=== PATIENT | male | born 1965 ===

== ENCOUNTER 2016-09-13 13:17 | Observation (INO) | payer MEDICAID, OTHER ==
[2016-09-13 13:17] VITALS: BMI 20.9
--- NOTE | 2016-09-13 14:21 | ED PDOC ---
HPI:STROKE - Time Time: 14:17 - Historian Historian: Patient - Chief Complaint Chief Complaint: Slurred speech - Onset Date: 09/13/16 Time: 13:30 Onset: Hours (1) - Timing Timing: Resolved - Location Location: Speech - Radiation Radiation: None - Severity of pain Maximum severity:: Mild Pain Scale:: 0 Severity Current: None Pain Scale:: 0 - Associated Symptoms Associated symptoms:: Chest pain - TPA Positive for Contraindication: Yes Reason tPA is not being Administered: Sxs resolved - Notes: Notes:: Unable to speak at 1:30 PM today while standing on line at [employer] office. Assoc with chest pressure and heaviness left arm. Sxs hav eresolved since arrival to ED. NIHSS Stroke Scale - How Severe is the Stroke Level of Consciousness: 0=Alert LOC to Questions: 0=Both comments correct LOC to commands: 0=Obeys both correctly Best Gaze: 0=Normal Visual: 0=No visual loss Facial: 0=Normal Motor Arm - Left: 0=No drift Motor Arm - Right: 0=No drift Motor Leg - Left: 0=No drift Motor Leg - Right: 0=No drift Limb Ataxia: 0=Absent Sensory: 0=Normal Best Language: 0=No aphasia Dysarthia: 0=Normal articulation Extinction & Inattention (Neglect): 0=Normal, no object Score: 0 rTPA Inclusion/Exclusion - Refusal of Treatment Patient Refused Treatment: No - Inclusion Criteria for Altepase Patient is 18 years or Older: Yes The Clinical Diagnosis of Ischemic Stroke That is Causing a Potentially Disabling Neurological Deficit: Yes Time of Onset is Well Established to be Less Than 270 Minute Before Treatment Would Begin: Yes Risk/Benefit Discussed With Patient/Family Member Present: No Past Medical History Vital Signs: Last Vital Signs Temp Pulse 79 09/13/16 13:19 Resp 16 09/13/16 13:19 BP 158/86 H 09/13/16 13:19 Pulse Ox 99 09/13/16 13:19 - Medical History PMH: Anxiety, CAD, Depression, HTN Denies: Diabetes, Hepatitis, HIV, Chronic Kidney Disease, Seizures, Sexually Transmitted Disease - Surgical History Surgical History: Coronary Stent (few months ago) - Family History Family History: States: Unknown Family Hx - Home Medications Home Medications: Ambulatory Orders Medication Instructions Recorded Aspirin [Lo-Dose Aspirin EC] 81 mg OD DAILY 09/13/16 Clopidogrel [Plavix] 75 mg PO DAILY 09/13/16 - Allergies Allergies/Adverse Reactions: Allergies Allergy/AdvReac Type Severity Reaction Status Date / Time No Known Allergies Allergy Verified 09/13/16 13:19 Review of Systems ROS Statement: Except As Marked, All Systems Reviewed And Found Negative Cardiovascular: Positive for: Chest Pain Neurological: Positive for: Change in Speech Physical Exam - Reviewed Nursing Documentation Reviewed: Yes Vital Signs Reviewed: Yes - Physical Exam Appears: Positive for: Non-toxic, No Acute Distress Head Exam: Positive for: ATRAUMATIC, NORMAL INSPECTION, NORMOCEPHALIC Skin: Positive for: Normal Color, Warm, DRY Eye Exam: Positive for: EOMI, Normal appearance, PERRL ENT: Positive for: Normal ENT Inspection Neck: Positive for: Normal, Painless ROM Cardiovascular/Chest: Positive for: Regular Rate, Rhythm Respiratory: Positive for: CNT, Normal Breath Sounds Gastrointestinal/Abdominal: Positive for: Normal Exam, Bowel Sounds, Soft Back: Positive for: Normal Inspection Extremity: Positive for: Normal ROM Neurologic/Psych: Positive for: Alert, Oriented. Negative for: Motor/Sensory Deficits - ECG O2 Sat by Pulse Oximetry: 99 Disposition - Clinical Impression Clinical Impression: TIA (transient ischemic attack) - Patient ED Disposition Is Patient to be Admitted: Yes - Disposition Disposition Time: 14:23 Condition: FAIR - Pt Status Changed To: Hospital Disposition Of: Observation - POA Present On Arrival: None
[2016-09-13 14:33] LABS: BASO # 0.1 K/uL (0.0-0.2); BASO % 0.7 % (0.0-2.0); EOS # 0.2 K/uL (0.0-0.7); EOS % 1.7 % (0.0-4.0); HEMATOCRIT 40.7 % (35.0-51.0); LYMPH # 2.9 K/uL (1.0-4.3); LYMPH % 23.1 % (20.0-40.0); MEAN CELL VOLUME 88.6 fl (80.0-94.0); MEAN CORPUSCULAR HGB CONC 33.8 g/dL (33.0-37.0); MEAN PLATELET VOLUME 8.6 fl (7.2-11.7); MONO # 1.2 K/uL (0.0-0.8); MONO % 9.4 % (0.0-10.0); NEUT # 8.3 K/uL (1.8-7.0); NEUT % 65.1 % (50.0-75.0); NRBC % 0.2 % (0.0-0.0); RED CELL DISTRIBUTION WIDTH 15.1 % (11.5-14.5); WHITE BLOOD COUNT 12.8 K/uL (4.8-10.8)
--- NOTE | 2016-09-13 14:35 | CT ---
PROCEDURE: CT HEAD WITHOUT CONTRAST. HISTORY: code stroke COMPARISON: 10/21/2015 TECHNIQUE: Axial computed tomography images were obtained through the head/brain without intravenous contrast. Radiation dose: Total exam DLP = 1010.88 mGy-cm. This CT exam was performed using one or more of the following dose reduction techniques: Automated exposure control, adjustment of the mA and/or kV according to patient size, and/or use of iterative reconstruction technique. FINDINGS: HEMORRHAGE: No intracranial hemorrhage. BRAIN: No mass effect or edema. No atrophy or chronic microvascular ischemic changes. No evidence of acute infarct. VENTRICLES: Unremarkable. No hydrocephalus. CALVARIUM: Unremarkable. PARANASAL SINUSES: Unremarkable as visualized. No significant inflammatory changes. MASTOID AIR CELLS: Unremarkable as visualized. No inflammatory changes. OTHER FINDINGS: None. IMPRESSION: No intracranial hemorrhage. No evidence of acute infarct. Unremarkable examination. These results were discussed with Dr. Cool, by telephone, at 2:30 p.m. on 09/13/2016.
[2016-09-13 15:02] LABS: ALB/GLOB RATIO 1.4 (1.0-2.1); ALKALINE PHOSPHATASE 47 U/L (38-126); ALT/SGPT 36 U/L (21-72); AST/SGOT 26 U/L (17-59); BILIRUBIN,TOTAL 0.8 mg/dl (0.2-1.3); BLOOD UREA NITROGEN 12 mg/dl (9-20); CALCIUM 9.2 mg/dL (8.4-10.2); CARBON DIOXIDE 24 mmol/L (22-30); CHLORIDE 110 mmol/L (98-107); CHOLESTEROL 174 mg/dL (0-199); GFR AFRICAN-AMERICAN > 60; GLUCOSE,RANDOM 83 mg/dL (75-110); POTASSIUM 4.1 MMOL/L (3.6-5.0); SODIUM 144 mmol/l (132-148); TOTAL PROTEIN 7.8 G/DL (6.3-8.2)
--- NOTE | 2016-09-13 15:18 | CON ---
DATE: 09/13/2016 CHIEF COMPLAINT: Slurred speech. HISTORY OF PRESENTING ILLNESS: This is a 51-year-old man who is a smoker, history of dyslipidemia, c oronary artery disease, anxiety, depression, hypertension, is on aspirin and Plavix at home. He came in the hospital because while he was at the [employer] office and was standing in line, he noti job that he had difficulty getting out his words and his noticed that his speech was slightly sl urred. No focal weakness or paresthesias in the extremities. No headaches. No change in sense of v ision, taste or smell. His transient dysarthria resolved. Currently, there is no pronator drift. Joseline loomis is doing well. At this time, no focal deficits on neuro exam and therefore since his symptoms reso lved, he was not a tPA candidate. PAST MEDICAL HISTORY: History of coronary artery disease, depression, hypertension, anxiety. REVIEW OF SYSTEMS: A 14-point is negative except for the HPI. MEDICATIONS: Reviewed via nurse's reconciliation sheet. ALLERGIES: No known drug allergies. SOCIAL HISTORY: He is a smoker. Occasional ETOH use. No illicit drug use. FAMILY HISTORY: Noncontributory. PHYSICAL EXAMINATION: VITAL SIGNS: Temperature of 97.3, pulse rate 61, blood pressure 158/86, respiratory rate 16, oxygen saturation 99% via room air. GENERAL: The patient is sitting up in bed, no acute distress. HEENT: Atraumatic, normocephalic. PERRLA. Extraocular muscles intact. NECK: Supple, no JVD, no adenopathy noted. LUNGS: Clear to auscultation. No adventitious sounds. HEART: S1, S2, normal rate and rhythm. No murmurs, rubs, or gallops. ABDOMEN: Soft, nontender, nondistended. Bowel sounds are present. EXTREMITIES: No clubbing, no cyanosis. Peripheral pulses 2+ felt bilaterally. NEUROLOGIC: The patient is alert, oriented to person, place, month and year. Speech is fluent, with out any errors. Cranial nerves II-XII are intact. MOTOR: Moves all extremities equally. No pronator drift seen. SENSORY: Light touch, pinprick, proprioception, vibration intact. DEEP TENDON REFLEXES: 2+ throughout. COORDINATION: Gbkfzi-tj-xray intact. GAIT: Deferred for now. LABORATORIES: Unremarkable. ASSESSMENT AND PLAN: This is a 51-year-old man with past medical history of coronary artery disease, hypertension, depression, anxiety, who had transient slurred speech without any focal weakness. His neuro exam is currently nonfocal. At this time, his symptoms likely presented a likely transient is chemic event. At this time, recommend: 1. An MRI of the brain to assess for any acute intracranial abnormalities. 2. Continue with aspirin 81 and Plavix 75 mg for stroke prevention. 3. Low fat, low cholesterol diet and clinically stable from my standpoint. Thank you for this consult. Guillermo Jain MD cc: [id number] TT: 09/13/2016 15:18:09 Confirmation # [id number] Dictation # [id number]
--- NOTE | 2016-09-13 15:40 | RAD ---
HISTORY: cva COMPARISON: Chest x-ray performed 10/21/15 TECHNIQUE: Chest, one view. FINDINGS: Vascular stent. LUNGS: No focal consolidation. Probable tiny right upper lobe calcified granulomas. Please note that chest x-ray has limited sensitivity for the detection of pulmonary masses. PLEURA: No significant pleural effusion identified. No definite pneumothorax . CARDIOVASCULAR: Heart size appears within normal limits. OSSEOUS STRUCTURES: No acute osseous abnormality identified. VISUALIZED UPPER ABDOMEN: Unremarkable. OTHER FINDINGS: None. IMPRESSION: No focal consolidation, significant pleural effusion, or definite pneumothorax identified.
--- NOTE | 2016-09-13 19:23 | CON ---
DATE: 09/13/2016 REASON FOR CONSULTATION: Dizziness and chest discomfort. HISTORY OF PRESENT ILLNESS: The patient is a 51-year-old male, who is a smoker, has a histo ry of coronary artery disease, underwent right coronary artery stenting in May of this year at [facility]. The patient was standing in line at [employer] office where he started to exper ience weakness and slurring of speech as well as tendency to fall asleep. The patient denies any los s of consciousness. He did report chest tightness. There is no reported diaphoresis. At this time, the patient feels comfortable. MEDICATIONS: Aspirin 81 mg once a day, Plavix 75 mg once a day, pneumococcal vaccine was given. The patient's home medications include aspirin and Plavix. REVIEW OF SYSTEMS: No nausea or vomiting. No fever or chills. No diaphoresis, no palpitation. PHYSICAL EXAMINATION: GENERAL: The patient is a middle-aged male who does not appear to be in any distress. VITAL SIGNS: Blood pressure 93/65, heart rate 65, temperature 97.5, respirations 20. HEENT: Normocephalic. NECK: No JVD. CHEST: Clear. HEART: S1, S2 regular. ABDOMEN: Soft. EXTREMITIES: No edema, no calf tenderness. LABORATORY AND DIAGNOSTIC DATA: EKG revealed sinus rhythm at rate of 74. Moderate voltage criteria for LVH. Laboratories: Hemoglobin and hematocrit 13.8 and 40.7, white count and platelet count 12.8 and 255,000. SMA-7 today is within normal limits except for chloride of 110. One set of troponin is negative. PT, PTT are within normal limits. Head CT scan without contrast unremarkable examination . ASSESSMENT: 1. Transient ischemic attack. 2. Chest pain, rule out myocardial infarction. 3. Leukocytosis. RECOMMENDATIONS: Continue aspirin 81 mg once a day, Plavix 75 mg once a day and will follow brain MR I that was performed today. Obtain daily EKGs and follow serial cardiac enzymes. Schedule the patie nt for an echocardiogram. Consider psychiatry evaluation in the meantime, as the patient has history of depression and apparently was not taking any medications. Wilner Hodges MD cc: [id number] TT: 09/13/2016 19:22:06 Confirmation # [id number] Dictation # [id number] ln
--- NOTE | 2016-09-13 19:25 | CARD ---
APPROVED REPORT EKG Measurement Heart [id number] MN [id number] [id number] <Conclusion> Normal sinus rhythm Moderate voltage criteria for LVH, may be normal variant Borderline ECG
[2016-09-13] MEDS ORDERED: Pneumococcal 23-Valent Vaccine IM ONE (21:00)
[2016-09-14 07:19] LABS: HEMATOCRIT 40.4 % (35.0-51.0); MEAN CELL VOLUME 90.6 fl (80.0-94.0); MEAN CORPUSCULAR HEMOGLOBIN 30.3 pg (27.0-31.0); MEAN CORPUSCULAR HGB CONC 33.4 g/dL (33.0-37.0); RED CELL DISTRIBUTION WIDTH 14.7 % (11.5-14.5)
[2016-09-14 07:23] LABS: ALB/GLOB RATIO 1.4 (1.0-2.1); ALKALINE PHOSPHATASE 49 U/L (38-126); ALT/SGPT 34 U/L (21-72); AST/SGOT 28 U/L (17-59); BILIRUBIN,TOTAL 0.8 mg/dl (0.2-1.3); BLOOD UREA NITROGEN 15 mg/dl (9-20); CALCIUM 9.3 mg/dL (8.4-10.2); CARBON DIOXIDE 25 mmol/L (22-30); CHLORIDE 109 mmol/L (98-107); CHOLESTEROL 179 mg/dL (0-199); GFR AFRICAN-AMERICAN > 60; GLUCOSE,RANDOM 88 mg/dL (75-110); POTASSIUM 3.5 MMOL/L (3.6-5.0); SODIUM 144 mmol/l (132-148); TOTAL PROTEIN 7.1 G/DL (6.3-8.2)
[2016-09-14 07:39] LABS: T4 8.37 ug/dl (5.5-11.0)
[2016-09-14 07:52] LABS: THYROID STIMULATING HORMONE 1.47 mIU/ML (0.46-4.68)
[2016-09-14 09:04] LABS: RBC URINE 3 /hpf (0-3); URINE BILIRUBIN NEGATIVE (NEGATIVE); URINE BLOOD NEGATIVE (NEGATIVE); URINE COLOR YELLOW (YELLOW); URINE GLUCOSE (UA) NEG (Normal); URINE KETONE NEGATIVE (NEGATIVE); URINE LEUKOCYTE ESTERASE NEG Leu/uL (Negative); URINE PROTEIN NEGATIVE (NEGATIVE); URINE UROBILINOGEN 0.2-1.0 mg/dL (0.2-1.0); WBC URINE 3 /hpf (0-5)
[2016-09-14 12:13] VITALS: O2SAT 99
--- NOTE | 2016-09-14 12:13 | MRI ---
PROCEDURE: MRI BRAIN WITHOUT CONTRAST HISTORY: TIA COMPARISON: Comparison made with CT scan brain 09/13/2016 TECHNIQUE: Multiplanar, multisequence MR images of the brain were obtained without intravenous contrast enhancement. FINDINGS: HEMORRHAGE: No acute parenchymal, subarachnoid or extra-axial hemorrhage. No hemosiderin deposition identified on gradient echo weighted sequence. DWI: No evidence of an acute or early subacute infarction seen on diffusion imaging. BRAIN PARENCHYMA: There are several small focal areas of increased T2 signal seen scattered about the subcortical white matter both cerebral hemispheres - nonspecific. Changes may represent minor chronic sequela of small vessel disease. Differential diagnosis would include sequela of migraine headaches, old trauma, post infectious/inflammatory etiologies. Atypical presentation of a demyelinating disease process would be less likely in the absence of a pertinent clinical history however not completely excluded. Mild generalized volume loss. VENTRICLES: No evidence of obstructive hydrocephalus CRANIUM: There are no acute calvarial abnormalities. ORBITS: Grossly unremarkable. PARANASAL SINUSES/MASTOIDS: Minor mucosal thickening noted within a few ethmoid air cells. VASCULAR SYSTEM: Visualized major vascular flow voids at skull base are patent. OTHER FINDINGS: None. IMPRESSION: No acute intracranial hemorrhage or infarct. There are several small nonspecific focal areas of increased T2 signal seen scattered about subcortical white matter both cerebral hemispheres nonspecific. Changes may represent chronic sequela of small vessel disease however see above discussion for differential diagnostic considerations. Mild generalized volume loss.
--- NOTE | 2016-09-14 14:46 | CP.PCM.HP ---
History of Present Illness - History of Present Illness History of Present Illness: CC: Weakness/ slurred speech. 51 y/o M, brought to ER [facility] for evaluation of weakness associated to slurred speech while at [employer] in [place]. As per PT, while in ER, after 30 minutes episodes were subsided. Worsening symptoms: Pt c/o of chest pain left sided, non radiated, mild intensity 3:10, intermittent, tightness type Aggravated factor: Unable to speak in the [employer] office while on line on [employer]. Pt denied: Fever, chills, n/v/d, abdominal pain, urinary symptoms, dizziness, syncope, headache, numbness, SOB, sick contact, recent travel. 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 EKG showed: Normal sinus rhythm. CT Head: No intracranial hemorrhage / infarct. MRI Brain: No acute intracranial hemorrhage or infarct. CXR: No consolidation, pleural effusion or pneumothorax. Carotid U-S: Severe Stenosis b/l. Present on Admission - Present on Admission Any Indicators Present on Admission: No Review of Systems - Constitutional Constitutional: Other (negative) - EENT Eyes: Requires Corrective Lenses Ears: Other (negative) Nose/Mouth/Throat: Other (negative) - Cardiovascular Cardiovascular: Chest Pain (L sided) - Respiratory Respiratory: Other (negative) - Gastrointestinal Gastrointestinal: Other (negative) - Genitourinary Genitourinary: Other (negative) - Musculoskeletal Musculoskeletal: Other (negative) - Integumentary Integumentary: Other (negative) - Neurological Neurological: Abnormal Speech - Psychiatric Psychiatric: Other (negative) - Endocrine Endocrine: Other (negative) - Hematologic/Lymphatic Hematologic: Other (egative) Past Patient History - Infectious Disease Hx of Infectious Diseases: None - Tetanus Immunizations Tetanus Immunization: Unknown - Past Medical History & Family History Past Medical History?: Yes Pertinent Family History: Unknown - Past Social History Smoking Status: Heavy Smoker > 10 Cigarettes Daily Alcohol: None Drugs: Denies Home Situation {Lives}: With Family - CARDIAC Hx Cardiac Disorders: Yes Hx Hypertension: Yes - PULMONARY Hx Respiratory Disorders: No - NEUROLOGICAL Hx Neurological Disorder: No - HEENT Hx HEENT Problems: No - RENAL Hx Chronic Kidney Disease: No Hx Kidney Stones: Yes (DX LAST WEEK AT [facility]) - ENDOCRINE/METABOLIC Hx Endocrine Disorders: No - HEMATOLOGICAL/ONCOLOGICAL Hx Blood Disorders: No Hx Cancer: Yes (Testicular in 1998, had Orchiectomy.) - INTEGUMENTARY Hx Dermatological Problems: No - MUSCULOSKELETAL/RHEUMATOLOGICAL Hx Musculoskeletal Disorders: No Hx Falls: No - GASTROINTESTINAL Hx Gastrointestinal Disorders: No - GENITOURINARY/GYNECOLOGICAL Hx Genitourinary Disorders: Yes Hx Prostate Cancer: Yes - PSYCHIATRIC Hx Psychophysiologic Disorder: Yes Hx Anxiety: Yes Hx Depression: Yes Hx Substance Use: No - SURGICAL HISTORY Hx Surgeries: Yes Hx Cardiac Catheterization: Yes Hx Coronary Stent: Yes (few months ago) Other/Comment: Orchiectomy in 1998. - ANESTHESIA Hx Anesthesia: Yes Hx Anesthesia Reactions: No Meds Allergies/Adverse Reactions: Allergies Allergy/AdvReac Type Severity Reaction Status Date / Time No Known Allergies Allergy Verified 09/13/16 13:19 Physical Exam - Constitutional Appears: No Acute Distress - Head Exam Head Exam: NORMAL INSPECTION - Eye Exam Eye Exam: PERRL - ENT Exam ENT Exam: Normal Oropharynx - Neck Exam Neck exam: Positive for: Normal Inspection - Respiratory Exam Respiratory Exam: NORMAL BREATHING PATTERN - Cardiovascular Exam Cardiovascular Exam: REGULAR RHYTHM - GI/Abdominal Exam GI & Abdominal Exam: Normal Bowel Sounds, Soft - Extremities Exam Extremities exam: Positive for: normal inspection - Back Exam Back exam: NORMAL INSPECTION - Neurological Exam Neurological exam: Alert, Oriented x3 Additional comments: No motor sensory deficit. - Psychiatric Exam Psychiatric exam: Normal Mood - Skin Skin Exam: Warm Results - Vital Signs Recent Vital Signs: Last Vital Signs Temp 97.9 F 09/14/16 12:13 Pulse 64 09/14/16 12:13 Resp 20 09/14/16 12:13 BP 89/57 L 09/14/16 12:13 Pulse Ox 99 09/14/16 12:13 reviewed J.PShawn - Labs Result Diagrams: 09/14/16 05:20 09/14/16 05:20 Labs: Laboratory Results - last 24 hr 09/13/16 09/13/16 09/13/16 14:27 14:35 14:50 WBC RBC Hgb Hct MCV MCH MCHC RDW Plt Count D-Dimer, Quantitative Sodium Potassium Chloride Carbon Dioxide Anion Gap BUN Creatinine Est GFR ( Amer) Est GFR (Non-Af Amer) POC Glucose (mg/dL) 80 Random Glucose Calcium Total Bilirubin AST ALT Alkaline Phosphatase Total Protein Albumin Globulin Albumin/Globulin Ratio Triglycerides Cholesterol LDL Cholesterol Direct HDL Cholesterol Thyroxine (T4) TSH 3rd Generation Blood Type A NEGATIVE Blood Type Confirm A NEGATIVE Antibody Screen Negative BBK History Checked No verified bt 09/13/16 09/14/16 09/14/16 18:38 05:20 05:20 WBC 15.0 H RBC 4.45 Hgb 13.5 Hct 40.4 MCV 90.6 D MCH 30.3 MCHC 33.4 RDW 14.7 H Plt Count 237 D-Dimer, Quantitative 100 Sodium 144 Potassium 3.5 L Chloride 109 H Carbon Dioxide 25 Anion Gap 14 BUN 15 Creatinine 0.9 Est GFR ( Amer) > 60 Est GFR (Non-Af Amer) > 60 POC Glucose (mg/dL) Random Glucose 88 Calcium 9.3 Total Bilirubin 0.8 AST 28 ALT 34 Alkaline Phosphatase 49 Total Protein 7.1 Albumin 4.2 Globulin 3.0 Albumin/Globulin Ratio 1.4 Triglycerides 105 D Cholesterol 179 LDL Cholesterol Direct 132 H HDL Cholesterol 27 L Thyroxine (T4) 8.37 TSH 3rd Generation 1.47 Blood Type Blood Type Confirm Antibody Screen BBK History Checked reviewed J.P. - EKG Data EKG comments: reviewed J.P. - Imaging and Cardiology CT scan - head Status: Report reviewed by me (JShawnP.) Chest x-ray Status: Report reviewed by me (J.p.) Additional comment: MRI brain reviewed J.P. Assessment & Plan (1) TIA (transient ischemic attack) Status: Acute Priority: High (2) Chest pain Status: Acute Priority: High Comment: Unspecified. (3) Leukocytosis Status: Acute Priority: High - Assessment and Plan (Free Text) Plan: Carotid Doppler showed severe stenosis bilateral, discussed with Neurology, Pt is cleared to be discharged to f/u CT Angio as out Pt. Continue Palvix and asa. Cleared by Cardiology, Pt has appointment with his Cardiology tomorrow, f/u PMD this week. - Date & Time Date: 09/14/16 Time: 11:40
--- NOTE | 2016-09-14 15:48 | US ---
PROCEDURE: Carotid Doppler study dated 09/14/2026 the HISTORY: TIA COMPARISON: No prior TECHNIQUE: Grayscale and duplex Doppler evaluation of the cervical carotid and vertebral arteries were performed. The common carotid, carotid bifurcations and cervical ICA and proximal ECA were evaluated. The vertebral arteries were evaluated for gross patency and direction. FINDINGS: The at current study reveals minimal intimal thickening within both common carotid arteries. Atherosclerotic plaque present within both carotid bifurcations extending into the proximal internal carotid arteries. There is increased velocities in both internal carotid arteries more so on the left side. Maximal left ICA velocity = 179.8 cm CS S. Maximal left CCA velocity = 88.4 cm/S. ICA/CCA ratio = 2.8 Based on velocity measurements there is an estimated percent diameter stenosis of 60-79 % which is severe on the left-sided side Maximal right ICA velocity = 145.0 cm/S Maximal right CCA velocity = 86.6 cm/S ICA/CCA ratio = 2.1. Based on velocity measurements, there is estimated percent diameter stenosis between 60 79 % which is severe on the right Antegrade flow noted in both vertebral arteries. Impression: There is atherosclerotic soft and calcified plaque present within both carotid bifurcations and proximal internal carotid arteries with elevated velocities left greater than right indicating severe stenosis bilaterally.
[2016-09-14 16:11] VITALS: BP 92/66; PULSE 67; RESP 18; TEMP 98.1
--- NOTE | 2016-09-14 21:45 | CP.PCM.PN ---
Subjective - Date & Time of Evaluation Date of Evaluation: 09/14/16 Time of Evaluation: 11:00 - Subjective Subjective: No chest pain V/S stable Chest clear Heart S1S2 reg Abd soft ext no edema A/P chest paim AR ruled out Discussed with PMD F/U Echo report Patient has an appointment with his electronic court recorder tomorrow NB. Dictation system is down and that limited my note Objective - Vital Signs/Intake and Output Vital Signs (last 24 hours): Temp Pulse Resp BP Pulse Ox 98.1 F 67 18 92/66 L 99 09/14/16 16:00 09/14/16 16:00 09/14/16 16:00 09/14/16 16:00 09/14/16 16:00 - Labs Labs: 09/14/16 05:20 09/14/16 05:20 PT 11.9 Seconds (9.8-13.1) 09/13/16 14:20 INR 1.1 (0.9-1.2) 09/13/16 14:20 APTT 37.0 Seconds (25.6-37.1) 09/13/16 14:20
[2016-09-15 08:44] LABS: MICROALBUMIN 0.9 mg/dL
--- NOTE | 2016-09-15 12:01 | CARD ---
APPROVED REPORT EXAM: Two-dimensional and M-mode echocardiogram with Doppler and color Doppler. Other Information Quality : GoodRhythm : NSR INDICATION CVA/TIA 2D DIMENSIONS IVSd0.88 (0.7-1.1cm)LVDd4.49 (3.9-5.9cm) LVOT Diameter2.29 (1.8-2.4cm)PWd0.83 (0.7-1.1cm) IVSs1.18 (0.8-1.2cm)LVDs3.13 (2.5-4.0cm) FS (%) 30.2 %PWs1.21 (0.8-1.2cm) M-Mode DIMENSIONS Left Atrium (MM)2.91 (2.5-4.0cm)IVSd0.86 (0.7-1.1cm) Aortic Root2.76 (2.2-3.7cm)LVDd4.99 (4.0-5.6cm) Aortic Cusp Exc.1.76 (1.5-2.0cm)PWd0.91 (0.7-1.1cm) IVSs1.19 cmFS (%) 45 % LVDs2.75 (2.0-3.8cm)PWs1.53 cm Mitral Valve MV E Doizvcso63.0cm/sMV DECEL [id number] A Qbgdfmip03.0cm/s MV NCB61ysE/A ratio1.4MVA (PHT)4.11cm2 TDI Lateral E' Peak V13.69cm/sMedial E' Peak V10.92cm/sE/Lateral E'5.8 E/Medial E'7.2 Pulmonary Valve PV Peak Kibytxun173.6cm/s LEFT VENTRICLE The left ventricle is normal size. There is normal left ventricular wall thickness. The left ventricular function is normal. The left ventricular ejection fraction is 55% There is normal LV segmental wall motion. The left ventricular diastolic function is normal. No left ventricle thrombus noted on this study. There is no ventricular septal defect visualized. There is no left ventricular aneurysm. There is no mass noted in the left ventricle. RIGHT VENTRICLE The right ventricle is normal size. There is normal right ventricular wall thickness. The right ventricular systolic function is normal. ATRIA The left atrium size is normal. The right atrium size is normal. The interatrial septum is intact with no evidence for an atrial septal defect. AORTIC VALVE The aortic valve is normal in structure and function. No aortic regurgitation is present. There is no aortic valvular stenosis. There is no aortic valvular vegetation. MITRAL VALVE The mitral valve is normal in structure and function. There is no evidence of mitral valve prolapse. There is no mitral valve stenosis. There is no mitral valve regurgitation noted. TRICUSPID VALVE The tricuspid valve is normal in structure and function. There is no tricuspid valve regurgitation noted. There is no tricuspid valve prolapse or vegetation. There is no tricuspid valve stenosis. PULMONIC VALVE The pulmonary valve is normal in structure and function. There is no pulmonic valvular regurgitation. There is no pulmonic valvular stenosis. GREAT VESSELS The aortic root is normal in size. The ascending aorta is normal in size. The IVC is normal in size and collapses >50% with inspiration. PERICARDIAL EFFUSION The pericardium appears normal. There is no pleural effusion. <Conclusion> Normal Echocardiogram
== END 2016-09-14 16:50 | disposition home or self-care (01) ==
LOC: H.ER 13:17 → H.ERHOLD 14:24 → H.TEL 15:47
PROVIDERS: ADMIT Internal Medicine Pulmonary Disease; ATTEND Internal Medicine Pulmonary Disease
DX: G45.9 Transient cerebral ischemic attack, unspecified (principal); D72.829 Elevated white blood cell count, unspecified; R07.9 Chest pain, unspecified; I25.10 Atherosclerotic heart disease of native coronary artery without angina pectoris; Z95.5 Presence of coronary angioplasty implant and graft; Z85.47 Personal history of malignant neoplasm of testis; E78.5 Hyperlipidemia, unspecified; F17.200 Nicotine dependence, unspecified, uncomplicated; I10 Essential (primary) hypertension; Z23 Encounter for immunization; F41.9 Anxiety disorder, unspecified; I65.23 Occlusion and stenosis of bilateral carotid arteries